=== PATIENT | male | born 1995 | race Caucasian/White ===

== ENCOUNTER 2024-10-23 14:07 | Inpatient (IN) | payer OTHER, SELFPAY ==
[2024-10-23 09:24] VITALS: BP 132/86
--- NOTE | 2024-10-23 11:01 | ED.GENMED ---
History of Present Illness
<Mat Cadena PA-C - Last Filed: 10/23/24 14:05>
General
Chief Complaint: Dental Problem
Time Seen by Provider: 10/23/24 10:18
History of Present Illness
History of Present Illness:
Patient is a 28-year-old male with past medical history of ADHD here today for evaluation of dental pain along the right side x 1.5 weeks. Patient was evaluated by his dentist and underwent a right lower molar extraction on 10/14/2024. Prior to
this the patient was on antibiotics with Augmentin for 1 week. Immediately after the procedure patient had no pain but several days after he noted pain and swelling. He was prescribed amoxicillin by a dentist who is a neighbor and then several
days later contacted his dentist (who performed the procedure) who ultimately prescribed him metronidazole. He is currently on both medications. He has progressively worsening symptoms with facial swelling with extension into his neck and
inability to fully open his mouth. No fevers.
Past History
<Mat Cadena PA-C - Last Filed: 10/23/24 14:05>
Social History
Tobacco: Non-smoker
Alcohol: None
Review of Systems
<Mat Cadena PA-C - Last Filed: 10/23/24 14:05>
Review of Systems
All Other Systems: ROS reviewed and negative except as documented in HPI and ROS
Phy Exam
<Mat Cadena PA-C - Last Filed: 10/23/24 14:05>
Physical Exam
Physical Exam:
GENERAL: Alert , in no apparent distress
EYE: pupils equal and reactive
NECK: Supple
ENT: Large amount of right sided lower mandibular swelling with tenderness and firmness without erythema, there is extension along the submandibular region of the neck, patient has trismus and is not able to open his mouth fully more than 2 finger
lengths
CARDIAC: Regular rate and rhythm .
LUNGS: Clear breath sounds bilaterally, no acute respiratory distress, no wheezes/rales/rhonchi
NEUROLOGICAL: Alert and oriented, no focal neuro deficits
SKIN: Warm and dry, skin intact.
MUSCULOSKELETAL: No edema, well perfused.
PSYCH: Normal and appropriate interaction.
Course
<Mat Cadena PA-C - Last Filed: 10/23/24 14:05>
Orders/Labs/Results
Orders:
Orders
10/23/24 10:59
CT Neck With Iv Contrast Urgent
Comment:
Reason For Exam: dental abscess, extension into neck, right side
Acetaminophen [Tylenol Suspension] 975 mg PO NOW STA
10/23/24 11:19
Basic Metabolic Panel Urgent
Complete Blood Count/With Diff Urgent
10/23/24 13:27
Clindamycin 600 mg/50 ml [Cleocin] 600 mg in 50 ml IV NOW
10/23/24 13:34
Ketorolac [Toradol] 15 mg IV NOW STA
10/23/24 13:52
Admit/Transfer Patient As Directed
Co-Sign Provider:
Level of Care: Inpatient admission
Assign to:: Medical/Surgical
Physician / Group: krista
Diagnosis: dental infection
Reason for Hospitalization: dental infection
Expected length of stay greater than two midnights?: Yes
ELOS- Estimated Length of Stay in days: 3
I certify the patient meets the requirements for IP care: Yes
10/23/24 13:53
Code Status As Directed
Resuscitation Status: Full Code
PRN Pain Medication Management As Directed
May give lesser potent ordered pain med per pt: Yes
preference::
Protocol:: Medication orders for pain may be administered in a
manner that supports deferring to patient preference
when the pt is:
- Requesting an ordered lesser potent pain medication.
Least to most potent pain medications are defined
as: acetaminophen < NSAID < tramadol < opioids
(morphine, oxycodone, hydromorphone).
- Requesting a lesser dose of the same medication IF
ORDERED.
- Requesting a less intrusive route of administration
if both routes are prescribed by the provider (PO <
IV).
Abnormal Lab Results
10/23/24
11:19
WBC 11.3 H 10^3/uL
(4.8-10.8)
MCH 31.4 H pg
(27.0-31.0)
Absolute Neuts (auto) 8.8 H 10^3/uL
(1.4-6.5)
Absolute Monos (auto) 1.0 H 10^3/uL
(0.1-0.6)
Neutrophils % 78.5 H %
(42.2-75.2)
Lymphocytes % 11.0 L %
(20.5-51.1)
10/23/24 11:19
10/23/24 11:19
Vital Signs
Initial and Last Documented VS:
Initial Vital Signs
Temp Pulse Resp BP Pulse Ox
98.3 F 98 16 132/86 100
10/23/24 09:24 10/23/24 09:24 10/23/24 09:24 10/23/24 09:24 10/23/24 09:24
Last Documented Vital Signs
Temp Pulse Resp BP Pulse Ox
98.3 F 98 18 132/86 100
10/23/24 09:24 10/23/24 09:24 10/23/24 12:00 10/23/24 09:24 10/23/24 09:24
<Fabio Rosa, - Last Filed: 10/23/24 13:59>
Orders/Labs/Results
Orders:
Orders
10/23/24 10:59
CT Neck With Iv Contrast Urgent
Comment:
Reason For Exam: dental abscess, extension into neck, right side
Acetaminophen [Tylenol Suspension] 975 mg PO NOW STA
10/23/24 11:19
Basic Metabolic Panel Urgent
Complete Blood Count/With Diff Urgent
10/23/24 13:27
Clindamycin 600 mg/50 ml [Cleocin] 600 mg in 50 ml IV NOW
10/23/24 13:34
Ketorolac [Toradol] 15 mg IV NOW STA
10/23/24 13:52
Admit/Transfer Patient As Directed
Co-Sign Provider:
Level of Care: Inpatient admission
Assign to:: Medical/Surgical
Physician / Group: krista
Diagnosis: dental infection
Reason for Hospitalization: dental infection
Expected length of stay greater than two midnights?: Yes
ELOS- Estimated Length of Stay in days: 3
I certify the patient meets the requirements for IP care: Yes
10/23/24 13:53
Code Status As Directed
Resuscitation Status: Full Code
PRN Pain Medication Management As Directed
May give lesser potent ordered pain med per pt: Yes
preference::
Protocol:: Medication orders for pain may be administered in a
manner that supports deferring to patient preference
when the pt is:
- Requesting an ordered lesser potent pain medication.
Least to most potent pain medications are defined
as: acetaminophen < NSAID < tramadol < opioids
(morphine, oxycodone, hydromorphone).
- Requesting a lesser dose of the same medication IF
ORDERED.
- Requesting a less intrusive route of administration
if both routes are prescribed by the provider (PO <
IV).
Abnormal Lab Results
10/23/24
11:19
WBC 11.3 H 10^3/uL
(4.8-10.8)
MCH 31.4 H pg
(27.0-31.0)
Absolute Neuts (auto) 8.8 H 10^3/uL
(1.4-6.5)
Absolute Monos (auto) 1.0 H 10^3/uL
(0.1-0.6)
Neutrophils % 78.5 H %
(42.2-75.2)
Lymphocytes % 11.0 L %
(20.5-51.1)
10/23/24 11:19
10/23/24 11:19
Vital Signs
Initial and Last Documented VS:
Initial Vital Signs
Temp Pulse Resp BP Pulse Ox
98.3 F 98 16 132/86 100
10/23/24 09:24 10/23/24 09:24 10/23/24 09:24 10/23/24 09:24 10/23/24 09:24
Last Documented Vital Signs
Temp Pulse Resp BP Pulse Ox
98.3 F 98 18 132/86 100
10/23/24 09:24 10/23/24 09:24 10/23/24 12:00 10/23/24 09:24 10/23/24 09:24
<Mat Cadena PA-C - Last Filed: 10/23/24 14:05>
MDM/Problems Addressed
Differential Diagnosis Includes:
Patient is a 28-year-old male with past medical history of ADHD here today for evaluation of dental pain along the right side x 1.5 weeks. Overall, patient appears well. Vital signs grossly within normal limits. Physical examination described
above. On examination the patient has a large amount of right sided lower mandibular swelling with tenderness and firmness without erythema. There is extension along the submandibular region of the neck. Patient has trismus and is not able to
open his mouth fully more than 2 finger lengths. Given these findings I am concerned for a deep space soft tissue neck infection. We will initiate blood work and CT scan of the neck with IV contrast. Will provide Tylenol.
10/23/2024 13:58: Screening labs reveal a mild leukocytosis to 11.3. CT scan reveals fairly extensive soft tissue edema within the lower right face and jaw with low-attenuation region posterior to the angle of the jaw and extending into the
submandibular space measuring approximately 4.1 x 2.0 x 3.5 cm suspicious for phlegmon or developing abscess. Patient made aware of findings. Case was discussed with ENT on-call, Dr. Mendez. We will administer IV antibiotics with clindamycin and
admit for further treatment and monitoring. We do not currently have an oral surgeon on-call at this time. If patient does not improve he will require transfer with oral surgery capabilities. Hospitalist and ENT team on board with plan.
<Mat Cadena PA-C - Last Filed: 10/23/24 14:05>
*Critical Care Note
Total Time (30-74mins, 75-104mins- exclusive of procedures): Not Applicable
ED Attending Note
<Mat Cadena PA-C - Last Filed: 10/23/24 14:05>
-
Portions of this chart may have been created with voice recognition software.� Occasional wrong word or��sound alike� substitutions may have occurred due to the inherent limitations of voice recognition software.
<Fabio Rosa DO - Last Filed: 10/23/24 13:59>
ED Attending Note
Patient seen and examined by attending physician: Yes
I performed the substantive portion of visit, reviewed & personally made and approve the management plan that is documented in note by myself or ADAL.: Yes
ED Attending Note:
Seen with PA examined independently agree with assessment and plan 28-year-old male [employer] visiting from [place] he had an extraction of a tooth has had increased swelling despite antibiotics, CT noted labs noted at this point I think would
be prudent admitted to the hospital get him on IV antibiotics sideration for specialty consultation
Discharge Plan
Departure
Patient Disposition: Admit
Date of Disposition: 10/23/24
Time of Disposition: 13:42
Admit to: Med/Surg
Admit to doctor: Tanya Marroquin)
Presentation/result/management discussed w/ accepting MD/DO: Hospitalist
Patient with high blood pressure during this ER visit?: No
Condition: Good
Covid-19: Not Applicable
Discharge Problem:
Dental infection
Prescriptions:
No Action
metronidazole 500 mg Tablet
500 mg PO BID
Rx Instructions:
10/23/24: 1st dose 10/21/24
amoxicillin 400 mg/5 mL Suspension For Reconstitution
400 mg PO TID
Rx Instructions:
10/23/24: 1st dosed 10/18/24
lisdexamfetamine [Vyvanse] 50 mg Capsule
50 mg PO DAILY
Referrals:
Maryan Hernandez NP [Family Provider] -
Interventions
Interventions:
*Risk Screen - Suicide Last Done: 10/23/24 09:27
*General Assessment Last Done: 10/23/24 11:28
*Neglect/Abuse Screening Last Done: 10/23/24 09:27
*ED COVID-19 Vaccine History Last Done: 10/23/24 11:28
Discharge Date and Time
Print Language: DIVEHI
[2024-10-23] MEDS: TYLENOL SUSPENSION 975 MG PO (11:06)
[2024-10-23 11:28] LABS: % Basophils 0.4 % (0-2); % Eosinophils 1.1 % (0-6); % Immature Granulocytes 0.4 % (0-0.5); % Monocytes 8.6 % (1.7-9.3); % Neutrophils 78.5 % (42.2-75.2); Absolute Basophils 0.1 10^3/uL (0-0.2); Absolute Eosinophils 0.1 10^3/uL (0-0.7); Absolute Lymphocytes 1.2 10^3/uL (1.2-3.4); Absolute Neutrophils 8.8 10^3/uL (1.4-6.5); Hematocrit 42.5 % (39.0-52.0); Hemoglobin 15.3 g/dL (13.0-18.0); Mean Corpuscular Hgb 31.4 pg (27.0-31.0); Mean Corpuscular Volume 87.3 fL (80.0-94.0); Mean Platelet Volume 10.4 fL (7.4-10.4); Nucleated Red Blood Cells % 0 % (-); Platelet Count 234 10^3/uL (130-400); Red Blood Cell Count 4.87 10^6/uL (4.70-6.10); Red Cell Dist. Width 11.7 % (11.5-14.5); White Blood Cell Count 11.3 10^3/uL (4.8-10.8)
[2024-10-23 11:43] LABS: Blood Urea Nitrogen 10 mg/dl (9-20); Calcium 9.3 mg/dl (8.4-10.2); Carbon Dioxide 30 mmol/L (22-30); Chloride 102 mmol/L (98-107); Glucose 91 mg/dl (70-99); Potassium 4.3 mmol/L (3.5-5.1); Sodium 142 mmol/L (135-145); eGFR > 60.00
--- NOTE | 2024-10-23 13:37 | HPS.HSE ---
Family Physician
-
Family Physician: Maryan Hernandez
Chief Complaint
-
right facial swelling
History of Present Illness
28-year-old male with past medical history of ADHD here today for evaluation of dental pain along the right side x 1.5 weeks. Patient was evaluated by his dentist and underwent a right lower molar extraction on 10/14/2024. Prior to this the
patient was on antibiotics with Augmentin for 1 week. Immediately after the procedure patient had no pain but several days after he noted pain and swelling. He was prescribed amoxicillin by his dentist who is a neighbor and then several days later
contacted his dentist who ultimately prescribed him metronidazole. He is currently on both medications. He progressively worsening symptoms with sided facial swelling with extension into his neck . patient stated pain in his lips, tongue,ear. he
has pain with swallowing. denied fever. he is been taking Tylenol and Advil for pain. denied chest pain,sob. denied GREENE, dizzy or syncope. denied abdominal pain,n,v,d. denied dysuria or hematuria.
patient received IV Clinda in ER. admitting for further management.
Medical History
Past Medical History
Past Medical History: Reports Other
Additional Past Medical History:
ADHD
Past Surgical History: Reports Other
Additional Past Surgical History:
Tonsillectomy
Social History
Tobacco: Non-smoker
Alcohol: Occasional
Drug: None
Employment: Employed
Family History
Family History: Not pertinent
Allergies / Home Medications
Allergies reflects when Allergies were last updated in [employer].
Home Medications with original date entered in [employer]
Allergy/Medication List:
Allergies
Allergy/AdvReac Type Severity Reaction Status Date / Time
No Known Allergies Allergy Unverified 02/22/10 20:08
Home Medications
amoxicillin 400 mg/5 mL oral suspension 400 mg PO TID x 6 days 10/23/24
lisdexamfetamine 50 mg capsule (Vyvanse) 50 mg PO DAILY 10/23/24
metronidazole 500 mg tablet 500 mg PO BID X 7 days 10/23/24
Review of Systems
-
Constitutional: Reports No Symptoms
EENT: Reports Other (right facial swelling, dental pain, infection)
Respiratory: Reports No Symptoms
Cardiac: Reports No Symptoms
Abdomen/GI: Reports No Symptoms
: Reports No Symptoms
Musculoskeletal: Reports No Symptoms
Skin: Reports No Symptoms
Neurological: Reports No Symptoms
Endocrine: Reports No Symptoms
Hematologic/Lymphatic: Reports No Symptoms
Psych: Reports No Symptoms
Physical Exam
Vital Signs
Vital Signs
Temp Pulse Resp BP Pulse Ox
98.3 F 98 18 132/86 100
10/23/24 09:24 10/23/24 09:24 10/23/24 12:00 10/23/24 09:24 10/23/24 09:24
Physical Exam
General: Well Developed, Well Nourished and No Apparent Distress
HEENT: NormoCephalic, Moist mucous membranes, Atraumatic and Other (right facial swelling)
Respiratory: Clear
Cardiac: S1/S2 and Regular Rhythm; No Murmur or Rub
GI: Soft, Non Tender, Non Distended and Normal Bowel Sounds; No Organomegaly
Rectal: Deferred by Provider
Musculoskeletal: No Clubbing, No Cyanosis and No Edema
Neuro: AO x 3 and Nonfocal/grossly intact
Psych: Calm
Laboratory Results
-
10/23/24 11:19
10/23/24 11:19
Data Reviewed
-
CT Scan: Report Reviewed by me
Lab Data: Labs Reviewed by me
Impression/Plan
-
#dental infection
-failed outpatient abx therapy
-CT with CT shows:There is extensive soft tissue edema centered upon the right mandible with low-attenuation focus posterior to the angle of the jaw extending into the submandibular space measuring approximately 4.1 x 2.0 x 3.5 cm suspicious for
phlegmon/abscess. Enlarged and presumably reactive right submandibular node measuring 13 mm.There are findings compatible with recent right submandibular molar extraction. Periapical lucency around one of the right maxillary molars compatible with
dental disease (image 28, series 201).
-IV clindamycin continued
-consider oral surgery
-ENT following patient
-Tylenol,Toradol
prn for fever, pain
-wbc 11.3
#ADHD
-Vyvanse continued
#DVT prophylaxis
-scd
#CODE status
-full code
[2024-10-23] MEDS: CLEOCIN 50 IV ×2 (13:39→21:56)
[2024-10-23] MEDS: TORADOL 15 MG IV (13:39)
--- NOTE | 2024-10-23 13:58 | W.PN.UPDATE ---
Addendum entered and electronically signed by Tanya Marroquin MD 10/23/24 14:00:
Clear liquid diet.
Original Note:
Update Note
Progress Note Update
This is an addendum to the H&P written by Princess Aguilera on 10/23/2024. Patient seen and examined independently with [employer].
28-year-old male past medical history of ADHD here for right-sided dental pain for 1/2-week. He underwent right lower molar extraction on 10/14 now with increased pain and swelling and has been treated with amoxicillin/Flagyl. Now with facial
swelling with extension to neck and inability to fully open mouth.
CT neck shows fairly extensive soft tissue edema in the lower right face and jaw with low-attenuation region posterior to the angle of the jaw and extending into the submandibular space measuring 4.1 x 2 x 3.5 cm phlegmon versus developing abscess.
ENT referred him to the emergency room and recommended clindamycin and maxillofacial consult. Nobody officially on-call for maxillofacial and ENT recommended IV antibiotics and potential transfer for maxillofacial consult if no improvement.
[2024-10-23 15:27] VITALS: BP 148/90; BMI 23.3
--- NOTE | 2024-10-23 15:43 | CON.MD ---
Consultation - Medical
-
Chief complaint: Right dental infection
History of present illness: 28-year-old gentleman with 1-1/2-week history of right posterior dental pain involving the right posterior molar. He has been treated with amoxicillin and metronidazole without significant improvement. He underwent
right posterior mandibular molar extraction a week ago. He presented to the emergency room today with persistent pain. CT scan showed phlegmon versus abscess in the submandibular area adjacent to the mandible. There appears to be lucency
surrounding the posterior molar area. The patient has a history of attention deficit disorder but is otherwise healthy. He has been started on clindamycin at the hospital. He has not received any steroids. The patient has not had similar
problems in the past.
Past medical history:
Illnesses: Attention deficit disorder, dental infection
Allergies: No known drug allergies
Home medications: Amoxicillin 400 mg p.o. 3 times daily, Vyvanse 50 mg p.o. daily, metronidazole 500 mg p.o. twice daily
Hospitalizations: The patient is currently hospitalized for right dental infection with phlegmon/abscess
Past surgical history: The patient underwent right posterior mandibular molar extraction 1 week ago
Family history: Asked and is noncontributory for this problem
Review of systems: Right posterior jaw swelling and discomfort, negative for dysphagia, negative for respiratory distress
Physical examination: Head: Atraumatic and normocephalic
Eyes: Extraocular movements are intact and pupils are equal and reactive to light
Ears: Normal
Nose: Normal
Neck: Right neck swelling is present in the area of the angle of the mandible.
Salivary glands: Normal
Cranial nerves: 2 through 12 are intact
Oral cavity: Tenderness of right posterior mandible with swelling
Thyroid gland: Normal
CT scan of neck shows evidence of a lucency without ring enhancement in the submandibular area on the right side consistent with either phlegmon or abscess.
Impression this patient has a right dental infection about a week and a half after he underwent right posterior molar extraction. CT scan showed phlegmon versus abscess.
Impression: This 28-year-old gentleman with a history of attention deficit disorder presents with a right dental infection that began about a week and a half ago. He underwent right posterior molar extraction about a week ago but has noticed
progression of swelling and tenderness. He was treated with amoxicillin and metronidazole as an outpatient.
Plan: The patient is being admitted to the [facility] where he is on clindamycin. I will write for some morphine and for him to be n.p.o. after midnight. I also wrote for a dose of Decadron. If he fails to improve, we will plan on
performing incision and drainage. I will reevaluate the patient tomorrow morning.
[2024-10-23] MEDS: DECADRON 10 MG IV (16:10)
[2024-10-23] MEDS: MORPHINE SULFATE 4 MG IV (16:11)
[2024-10-23] MEDS: ZOFRAN 4 MG IV (16:12)
[2024-10-23] MEDS: TYLENOL ORAL SOLUTION 650 MG PO (16:13)
[2024-10-23] MEDS: TORADOL 10 MG IV (20:22)
[2024-10-23 23:26] VITALS: BP 117/84
[2024-10-24] VITALS (12 sets, daily range): BP systolic 108–129; BP diastolic 63–74
[2024-10-24] MEDS: CLEOCIN 50 IV (05:00)
[2024-10-24 06:44] LABS: Hematocrit 41.7 % (39.0-52.0); Hemoglobin 14.2 g/dL (13.0-18.0); Mean Corp Hgb Conc. 34.1 g/dL (33.0-37.0); Mean Corpuscular Hgb 30.3 pg (27.0-31.0); Mean Corpuscular Volume 89.1 fL (80.0-94.0); Mean Platelet Volume 10.6 fL (7.4-10.4); Platelet Count 256 10^3/uL (130-400); Red Blood Cell Count 4.68 10^6/uL (4.70-6.10); Red Cell Dist. Width 11.6 % (11.5-14.5); White Blood Cell Count 12.2 10^3/uL (4.8-10.8)
--- NOTE | 2024-10-24 08:19 | W.PN.ENT ---
Addendum entered and electronically signed by Lee Mendez MD 10/24/24 08:25:
abscess, swelling and drainage planned on right side
Original Note:
Today's Communication
-
seen at bedside
Impression / Plan
-
left submandibular abscess
plan to perform incision and drainage
discussed with patient
maintain npo
Subjective Data
-
right submandibular abscess
WBC up slightly
still has trismus and swelling
pain improved a little with steroids, antibiotics, and opiods
Objective Data
-
Vital Signs
Temp Pulse Resp BP Pulse Ox
98.7 F 77 16 116/71 99
10/24/24 07:07 10/24/24 07:07 10/24/24 07:07 10/24/24 07:07 10/24/24 07:07
Intake & Output
10/23/24 10/24/24 10/25/24
06:59 06:59 06:59
Intake:
Oral fluids 1200 / 1200
IV piggybacks 100 / 100
Other:
Number of approximated MODERATE 2
amounts of urine
Number of approximated LARGE 2
amounts of urine
Lab Results
10/24/24 06:06
10/23/24 11:19
Calcium 9.3 mg/dl (8.4-10.2) 10/23/24 11:19
Physical Exam
-
trismus present
left submandibular swelling present
Chest: Clear
Respiratory: Clear
Data Reviewed
-
Radiology Results: Report Reviewed
[2024-10-24] MEDS: TORADOL 10 MG IV ×2 (08:32→15:51)
--- NOTE | 2024-10-24 09:18 | W.PN.HOSP.TC ---
Today's Communication/Plan
-
see bold
Assessment / Plan
Assessment / Plan
Gen: NAD, AAOx3.
Eyes: EOMI, PERRLA, no scleral icterus.
ENMT: Right submandibular and submental induration and soft tissue enlargement consistent with underlying abscess
Neck: supple.
CV: RRR, +S1/S2, no m/r/g.
Resp: CTAB, no rales, wheezes, or rhonchi.
Abd: +BS, soft, NT, ND
Skin: No rashes.
Neuro: CN 2-12 intact, non-focal.
Psych: Normal mood and affect.
CT neck: Fairly extensive soft tissue edema within the lower right face and jaw with low-attenuation region posterior to the angle of the jaw and extending into the submandibular space measuring approximately 4.1 x 2.0 x 3.5 cm suspicious for
phlegmon or developing abscess.
Right submandibular abscess:
-ENT to drain in the OR later today, will follow intraop/abscess Cx
-change abx to Unasyn
-toradol/morphine PRN
-trend leukocytosis
-afebrile, currently hemodynamically stable
FULL/SCDs
Anticipated Discharge: 24 - 48 hours
Subjective/Interval History
-
Date of Service: October 24, 2024
No new complaints. Specifically denies shortness of breath, wheezing, drooling, or any other symptoms of airway compromise.
Objective Data
-
Labs:
Laboratory Results
10/24/24
06:06
WBC 12.2 H
Hgb 14.2
Hct 41.7
Plt Count 256
Vital Signs:
Vital Signs
Temp Pulse Resp BP Pulse Ox
98.7 F 77 16 116/71 99
10/24/24 07:07 10/24/24 07:07 10/24/24 07:07 10/24/24 07:07 10/24/24 07:07
I&O
10/23/24 10/24/24 10/25/24
06:59 06:59 06:59
Intake Total 1300 / 1300
Balance 1300 / 1300
[2024-10-24] MEDS: UNASYN IV ×3 (10:46→21:45)
--- NOTE | 2024-10-24 18:32 | PTCARENOTE ---
pt back from OR s/p I&D. pt c/o pain 04/03. pt is on reg diet. call lee within the reach. plan of care ongoing.
[2024-10-24] MEDS: MORPHINE SULFATE 4 MG IV (20:25)
[2024-10-25] MEDS: TORADOL 10 MG IV ×2 (01:21→08:33)
[2024-10-25] MEDS: UNASYN IV ×4 (03:07→21:41)
[2024-10-25 03:17] VITALS: BP 126/69
[2024-10-25 07:44] VITALS: BP 129/57
[2024-10-25] MEDS: FLUSH (NSS) 1 FLUSH IV ×3 (08:34→15:46)
[2024-10-25 08:45] LABS: Hemoglobin 13.6 g/dL (13.0-18.0); Mean Corpuscular Hgb 29.9 pg (27.0-31.0); Mean Corpuscular Volume 87.9 fL (80.0-94.0); Mean Platelet Volume 10.5 fL (7.4-10.4); Platelet Count 278 10^3/uL (130-400); Red Blood Cell Count 4.55 10^6/uL (4.70-6.10); Red Cell Dist. Width 11.7 % (11.5-14.5); White Blood Cell Count 11.7 10^3/uL (4.8-10.8)
--- NOTE | 2024-10-25 10:16 | W.PN.HOSP.TC ---
Today's Communication/Plan
-
see bold
Assessment / Plan
Assessment / Plan
Gen: NAD, AAOx3.
Eyes: EOMI, PERRLA, no scleral icterus.
ENMT: C/D/I dressing on neck. Right face (over the parotid gland) and right submandibular regions with mild soft tissue edema
Neck: supple.
CV: RRR, +S1/S2, no m/r/g.
Resp: Remains CTAB, no rales, wheezes, or rhonchi.
Skin: No rashes.
Neuro: Remains CN 2-12 intact, non-focal.
Psych: Normal mood and affect.
CT neck: Fairly extensive soft tissue edema within the lower right face and jaw with low-attenuation region posterior to the angle of the jaw and extending into the submandibular space measuring approximately 4.1 x 2.0 x 3.5 cm suspicious for
phlegmon or developing abscess.
Right submandibular abscess:
-ENT drained in the OR 10/24/24, drain in place, follow intraop/abscess Cx
-cont Unasyn
-toradol/morphine PRN
-leukocytosis improving
-afebrile, currently hemodynamically stable
FULL/SCDs
Anticipated Discharge: Within 24 hours
Subjective/Interval History
-
Date of Service: October 25, 2024
No new complaints. Specifically no difficulty breathing.
Objective Data
-
Labs:
Laboratory Results
10/25/24
07:52
WBC 11.7 H
Hgb 13.6
Hct 40.0
Plt Count 278
Vital Signs:
Vital Signs
Temp Pulse Resp BP Pulse Ox
98.2 F 57 18 129/57 98
10/25/24 07:44 10/25/24 07:44 10/25/24 07:44 10/25/24 07:44 10/25/24 08:29
I&O
10/24/24 10/25/24 10/26/24
06:59 06:59 06:59
Intake Total 1300 / 1300 580 / 580
Balance 1300 / 1300 580 / 580
--- NOTE | 2024-10-25 10:20 | W.PN.ENT ---
Today's Communication
-
seen at bedside
Impression / Plan
-
right submandibular abscess s/p drainage yesterday
improved with minimal discharge
will keep drain in place
continue antibiotocs
Subjective Data
-
right submandibular abscess
drained yesterday, swelling decreased
drain in place
pain minimal
Objective Data
-
Vital Signs
Temp Pulse Resp BP Pulse Ox
98.2 F 57 18 129/57 98
10/25/24 07:44 10/25/24 07:44 10/25/24 07:44 10/25/24 07:44 10/25/24 08:29
Intake & Output
10/24/24 10/25/24 10/26/24
06:59 06:59 06:59
Intake:
Oral fluids 1200 / 1200 240 / 240
IV fluids (Total) 100 / 100
normosol 100 / 100
IV piggybacks 100 / 100 240 / 240
Other:
Number of approximated MODERATE 2 2
amounts of urine
Number of approximated LARGE 2
amounts of urine
Lab Results
10/25/24 07:52
10/23/24 11:19
Calcium 9.3 mg/dl (8.4-10.2) 10/23/24 11:19
Physical Exam
-
swelling decreased
drain in place
dressing changed
Chest: Clear
Respiratory: Clear
Data Reviewed
-
Radiology Results: Report Reviewed
[2024-10-25 11:24] VITALS: BP 119/68
[2024-10-25 14:42] VITALS: BP 120/67
--- NOTE | 2024-10-25 17:15 | PTCARENOTE ---
Pt AAO x3, CLEMENT well, OOB ambulating in room/to BR; claire well. VSS. On room air- pulse ox 100 %, no SOB noted. Abd soft, rounded, claire regular diet- denies dysphagia. Voiding in BR without difficulty. Lt neck dsg D/I. Resting in bed at present,
no c/o. Will continue to monitor.
[2024-10-25 23:16] VITALS: BP 123/69
[2024-10-26] MEDS: UNASYN IV ×2 (04:48→09:38)
[2024-10-26] MEDS: TORADOL 10 MG IV (05:57)
[2024-10-26 07:30] VITALS: BP 129/82
[2024-10-26 10:15] LABS: Hematocrit 41.4 % (39.0-52.0); Hemoglobin 13.5 g/dL (13.0-18.0); Mean Corp Hgb Conc. 32.6 g/dL (33.0-37.0); Mean Corpuscular Hgb 29.7 pg (27.0-31.0); Mean Corpuscular Volume 91.2 fL (80.0-94.0); Mean Platelet Volume 10.5 fL (7.4-10.4); Platelet Count 228 10^3/uL (130-400); Red Blood Cell Count 4.54 10^6/uL (4.70-6.10); Red Cell Dist. Width 11.8 % (11.5-14.5); White Blood Cell Count 7.4 10^3/uL (4.8-10.8)
[2024-10-26 11:25] VITALS: BP 128/86
--- NOTE | 2024-10-26 11:33 | W.PN.ENT ---
Today's Communication
-
seen at bedside
Impression / Plan
-
right submandibular abscess s/p drainage 10/24, abscess occurred due to caries, not due to molar extraction
improved with minimal discharge
will keep drain in place
OK to go home today on Augmentin
Will follow up tomorrow for drain removal
Subjective Data
-
right submandibular abscess, probably began before molar extraction, but molar extraction did not solve the problem
drained 10/[address]
pain minimal
some trismus
Objective Data
-
Vital Signs
Temp Pulse Resp BP Pulse Ox
98.4 F 75 18 128/86 95
10/26/24 11:25 10/26/24 11:25 10/26/24 11:25 10/26/24 11:25 10/26/24 11:25
Intake & Output
10/25/24 10/26/24 10/27/24
06:59 06:59 06:59
Intake:
Oral fluids 240 / 240 1500 / 1500
IV fluids (Total) 100 / 100
normosol 100 / 100
IV piggybacks 240 / 240 480 / 480
Other:
Number of approximated MODERATE 2 3
amounts of urine
Lab Results
10/26/24 08:49
10/23/24 11:19
Calcium 9.3 mg/dl (8.4-10.2) 10/23/24 11:19
Physical Exam
-
swelling decreased
drain in place
Chest: Clear
Respiratory: Clear
Data Reviewed
-
Radiology Results: Report Reviewed
--- NOTE | 2024-10-26 11:36 | W.PN.ENT ---
Today's Communication
-
seen at bedside
Impression / Plan
-
right submandibular abscess s/p drainage 10/24
improved with minimal discharge
will keep drain in place
OK to go home today on Augmentin
Will follow up tomorrow for drain removal
Subjective Data
-
right submandibular abscess
drained 10/[address]
pain minimal
some trismus
Objective Data
-
Vital Signs
Temp Pulse Resp BP Pulse Ox
98.4 F 75 18 128/86 99
10/26/24 11:25 10/26/24 11:25 10/26/24 11:25 10/26/24 11:25 10/26/24 11:32
Intake & Output
10/25/24 10/26/24 10/27/24
06:59 06:59 06:59
Intake:
Oral fluids 240 / 240 1500 / 1500
IV fluids (Total) 100 / 100
normosol 100 / 100
IV piggybacks 240 / 240 480 / 480
Other:
Number of approximated MODERATE 2 3
amounts of urine
Lab Results
10/26/24 08:49
10/23/24 11:19
Calcium 9.3 mg/dl (8.4-10.2) 10/23/24 11:19
Physical Exam
-
swelling decreased
minimal discharge
Chest: Clear
Respiratory: Clear
Data Reviewed
-
Radiology Results: Report Reviewed
--- NOTE | 2024-10-26 12:49 | CM ---
Filemon is being discharged today. He has a POOJA drain and was offered VN, however he advised that the drain is being removed today and he will be flying back to [place] afterwards.
Plan: Discharge to home with no needs.
--- NOTE | 2024-10-26 13:17 | W.PN.HOSP.TC ---
Today's Communication/Plan
-
Augmentin to complete 14-day course total
Drain in place, plan to remove with ENT tomorrow, follow-up tomorrow with ENT
Follow-up for dentistry within 1 week
Follow-up CBC within 1 week
Follow-up PCP within 1 week
Assessment / Plan
Assessment / Plan
Gen: NAD, AAOx3.
Eyes: EOMI, PERRLA, no scleral icterus.
ENMT: C/D/I dressing on neck. Right face (over the parotid gland) and right submandibular regions with mild soft tissue edema
Neck: supple.
CV: RRR, +S1/S2, no m/r/g.
Resp: Remains CTAB, no rales, wheezes, or rhonchi.
Skin: No rashes.
Neuro: Remains CN 2-12 intact, non-focal.
Psych: Normal mood and affect.
CT neck: Fairly extensive soft tissue edema within the lower right face and jaw with low-attenuation region posterior to the angle of the jaw and extending into the submandibular space measuring approximately 4.1 x 2.0 x 3.5 cm suspicious for
phlegmon or developing abscess.
Right submandibular abscess:
-ENT drained in the OR 10/24/24, drain in place, follow intraop/abscess Cx
- Unasyn�can discharge on Augmentin to complete 14-day course total; patient requesting liquid form of antibiotics�improved with minimal discharge
� Keep drain in place, plan to remove drain in ENT office tomorrow with Dr. Mendez
�Follow-up dentistry for bone graft issues within 1 week
-toradol/morphine PRN
-leukocytosis improving
-afebrile, currently hemodynamically stable
FULL/SCDs
More than 30 minutes spent in discharge including
Final examination of the patient
Summarizing hospital stay
Instructions for continuing care to all relevant caregivers
Preparation of discharge records, prescriptions, and referral forms
Total time spent (in minutes):
Anticipated Discharge: Today
Subjective/Interval History
-
Date of Service: October 26, 2024
No acute events, tolerating diet
Objective Data
-
Labs:
Laboratory Results
10/26/24
08:49
WBC 7.4
Hgb 13.5
Hct 41.4
Plt Count 228
Vital Signs:
Vital Signs
Temp Pulse Resp BP Pulse Ox
98.4 F 75 18 128/86 99
10/26/24 11:25 10/26/24 11:25 10/26/24 11:25 10/26/24 11:25 10/26/24 11:32
I&O
10/25/24 10/26/24 10/27/24
06:59 06:59 06:59
Intake Total 580 / 580 1979
Balance 580 / 580 1979
Review of Systems
-
History Source: Patient
All other systems: Not reviewed unless documented
Data Reviewed
-
CT Scan: Image personally visualized and interpreted and Report Reviewed by me
--- NOTE | 2024-10-26 13:20 | W.DS.TRANS ---
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
-
Discharge Instructions:
Discharge Diagnosis/Procedures
Right submandibular abscess
Diet No restrictions
Activity With assistance
Blood Work cbc in 1 week with pcp (monitoring WBC)
Instructions:
Stand-Alone Forms:
Changes to Home Medications: Yes
Discharge Medications:
DC Medications w/original date entered in [facility]
lisdexamfetamine 50 mg capsule (Vyvanse) 50 mg PO DAILY 10/23/24
acetaminophen 650 mg/20.3 mL oral solution 650 mg (20.3 mL) PO Q4HPRN PRN mild pain/GREENE/temp> 100.4F #0 mL 10/26/24
amoxicillin 200 mg-potassium clavulanate 28.5 mg/5 mL oral suspension 21.875 ml PO Q12H 12 days #525 mL 10/26/24
Home Medication Changes
acetaminophen 650 mg/20.3 mL oral solution 650 mg (20.3 mL) PO Q4HPRN PRN mild pain/GREENE/temp> 100.4F #0 mL 10/26/24
amoxicillin 200 mg-potassium clavulanate 28.5 mg/5 mL oral suspension 21.875 ml PO Q12H 12 days #525 mL 10/26/24
Pending Results: No
--- NOTE | 2024-10-26 13:22 | PN.CDI ---
CDI
- -
CDI:
Physician Documentation Request
Admit Date: 10/23/24 14:07
Dear Doctor Andrea,
Patient underwent right posterior mandibular molar extraction. He presented to ED with persistent pain. Patient found to have right submandibular abscess.
Please clarify the following:
Abscess is a complication of the molar extraction.
Abscess is unexpected but is NOT a complication of the molar extraction
Other
Use of terms such as suspected, likely, concern for, or probable (associated with a specific diagnosis that is being evaluated, monitored, or treated as if it exists) are acceptable and can be coded in the inpatient setting, when documented at the
time of discharge.
Thank you,
Sandra Tillman RN, BSN
CDI Specialist
tiger text
Please use your independent medical judgment in providing your response.
[2024-10-26 13:54] VITALS: BP 130/80
== END 2024-10-26 14:44 | disposition home or self-care (01) | DRG 159 ==
LOC: 4 EAST ACU 14:07
PROVIDERS: Physician Assistant; Registered Nurse; ADMITTING PHYSICIAN Hospitalist; ATTENDING PHYSICIAN Internal Medicine; CONSULT PHYSICIAN Otolaryngology Facial Plastic Surgery; EMERGENCY PHYSICIAN Emergency Medicine; FAMILY PHYSICIAN Family Medicine
PROC: 0J9100Z Drainage of Face Subcutaneous Tissue and Fascia with Drainage Device, Open Approach (ICD-10-PCS; 2024-10-24)
DX: K12.2 Cellulitis and abscess of mouth (principal); K04.7 Periapical abscess without sinus
CPT/HCPCS: 70491; 80048; 85025; 85027; 87070; 87075; 87205; 96365; 96375; 99284; Q9967